=== PATIENT | female | born 1945 | race Caucasian/White ===

== ENCOUNTER 2016-09-11 18:47 | Emergency (ER) | payer OTHER, MEDICAID ==
[~2016-09-11] VITALS: Ht 167.6 cm; Wt 134.1 kg
[2016-09-11 18:50] VITALS: Ht 167.6 cm; Wt 134.1 kg
[2016-09-11] MEDS ORDERED: CARSR60 PO (19:41)
[2016-09-11] MEDS ORDERED: BUSP10TA2 PO (19:42)
[2016-09-11] MEDS ORDERED: [UNRECOGNIZED DRUG - CODE] PO (19:43)
[2016-09-11] MEDS ORDERED: LACT10SO5 PO (19:46)
[2016-09-11] MEDS ORDERED: WARF5TAB72 PO (19:47)
[2016-09-11] MEDS ORDERED: VENL50TA2 PO (19:47)
[2016-09-11] MEDS ORDERED: FURO20TA3 PO (19:48)
[2016-09-11] MEDS ORDERED: ATEN-51 PO (19:48)
[2016-09-11] MEDS ORDERED: VENL100T PO (19:54)
[2016-09-11] MEDS ORDERED: DOCU250C58 PO (19:55)
[2016-09-11] MEDS ORDERED: MAGN400O4 PO (19:56)
[2016-09-11] MEDS ORDERED: LORA-441 PO (19:58)
[2016-09-11 19:59] LABS: ADD SCAN DIFF NO
[2016-09-11] MEDS ORDERED: ACET-2047 PO (19:59)
[2016-09-11 20:01] LABS: BASOPHILS % 0.3 % (0.0-2.0); EOSINOPHILS % 0.1 % (0.0-7.0); HEMATOCRIT 37.9 % (37.0-47.0); HEMOGLOBIN 12.4 g/dl (12.0-16.0); LYMPHOCYTES # 1.8 10^3/ul (0.8-2.9); LYMPHOCYTES % 12.2 % (15.0-51.0); MEAN CORPUSCULAR HGB CONC 32.7 g/dl (32.0-37.0); MEAN CORPUSCULAR VOLUME 94.8 fl (82.0-101.0); MEAN PLATELET VOLUME 10.3 fl (7.4-10.4); MONOCYTE # 1.2 10^3/ul (0.3-0.9); MONOCYTES % 8.1 % (0.0-11.0); NEUTROPHIL # 11.4 10^3/ul (1.6-7.5); NEUTROPHILS % 77.5 % (39.0-77.0); PLATELET COUNT 245 10^3/UL (140-415); RED CELL DISTRIBUTION WIDTH 15.3 % (11.5-14.5); WHITE BLOOD COUNT 14.7 10^3/ul (4.8-10.8)
[2016-09-11] MEDS ORDERED: UDROBAC PO (20:01)
[2016-09-11] MEDS ORDERED: OXYC-282 PO (20:01)
[2016-09-11] MEDS ORDERED: MORP15TA92 PO (20:02)
[2016-09-11 20:19] LABS: POTASSIUM 3.6 mmol/L (3.5-5.1)
[2016-09-11 20:20] LABS: INR 1.93; PARTIAL THROMBOPLASTIN TIME 24.2 Sec (25.0-35.0); PROTIME 22.2 Sec (12.2-14.2); PT RATIO 1.7
[2016-09-11 20:22] LABS: CREATININE 0.84 mg/dl (0.44-1.00)
[2016-09-11 20:23] LABS: CALCIUM 9.1 mg/dl (8.4-10.2)
[2016-09-11 21:08] LABS: URINE BLOOD (Dip) POC Negative (NEGATIVE)
[2016-09-11 21:10] VITALS: BP 127/57; PULSE 90; RESP 23; TEMP 97.5
[2016-09-11 21:24] LABS: ADD UMIC YES; URINE BILIRUBIN (Dip) NEGATIVE (NEGATIVE); URINE BLOOD (Dip) NEGATIVE (NEGATIVE); URINE COLOR LT. YELLOW (YELLOW); URINE GLUCOSE (Dip) NEGATIVE (NEGATIVE); URINE KETONES (Dip) NEGATIVE (NEGATIVE); URINE LEUKOCYTE ESTERASE (Dip) TRACE (NEGATIVE); URINE NITRITE (Dip) POSITIVE (NEGATIVE); URINE TOTAL PROTEIN (Dip) NEGATIVE (NEGATIVE); URINE UROBILINOGEN (Dip) 0.2 E.U./dL (0.1-1.0)
[2016-09-11] MEDS ORDERED: CEFTRIAXONE 1 GM/50 ML (PMX) 50 ML IVPB ONE (21:30)
[2016-09-11 21:38] LABS: BACTERIA,URINE MANY
[2016-09-11 21:39] LABS: URINE RBCS 0-2 /HPF (0)
--- NOTE | 2016-09-11 22:11 | ERA ---
ER Documentation Chief Complaint Date/Time DATE: 09/11/16 TIME: 22:07 Chief Complaint From Ismael Duarte,generalized pain,BLE swelling,needs SNF placement HPI This is a 71-year-old female who presents the emergency room for multiple complaints. It appears the main issue is that the patient is not being cared for appropriately at her assisted living facility. She is concerned that she cannot transfer from bed to chair and the staff is unable to help her with her activities of daily living. The patient describes diffuse body pain with a history of fibromyalgia. She notes bilateral lower extremity swelling that is consistent with baseline with a history of DVT appropriately on Coumadin. She denies any chest pain or pleuritic pain. ROS All systems reviewed and are negative except as per history of present illness. Medications Home Meds Reported Medications Morphine Sulfate* (Ms Contin*) 15 Mg Tablet.sa, 15 MG PO Q6H, TAB 09/11/16 Oxycodone HCl/Acetaminophen (Percocet 2.5-325 mg Tablet) 1 Each Tablet, 1 EACH PO Q6H, TAB 09/11/16 Guaifenesin-Codeine Phosphate* (Robitussin* AC) 5 Ml Syrup, 5 ML PO Q6H Y for COUGH, ML 09/11/16 Acetaminophen* (Acetaminophen*) 650 Mg Tablet, 650 MG PO Q6H Y for MAILD PAIN, # 30 TAB 09/11/16 Lorazepam* (Ativan*) 0.5 Mg Tablet, 0.5 MG PO HS Y for ANXIETY, #30 TAB 09/11/16 Magnesium Hydroxide* (Milk Of Magnesia*) 400 Mg/5 Ml Oral.susp, 30 ML PO QHS Y for PRN, ML 09/11/16 Docusate Sodium* (Colace*) 250 Mg Capsule, 250 MG PO DAILY, #30 CAP 09/11/16 Atenolol* (Atenolol*) 25 Mg Tablet, 50 MG PO BID, #60 TAB 09/11/16 Furosemide* (Furosemide*) 20 Mg Tablet, 20 MG PO DAILY, #60 TAB 09/11/16 Warfarin Sodium* (Coumadin*) 5 Mg Tablet, 5 MG PO DIRRECTED, TAB 09/11/16 Venlafaxine Hcl* (Venlafaxine Hcl*) 50 Mg Tablet, 100 MG PO TID, TAB 5/19/17 Lactulose* (Lactulose*) 10 Gm/15 Ml Solution, 30 ML PO Q8, ML 09/11/16 Phytonadione* (Mephyton*) 5 Mg Tablet, 5 MG PO DAILY Y for DIRRECTED, #30 TAB 09/11/16 Buspirone Hcl* (Buspirone Hcl*) 10 Mg Tab, 15 MG PO BID, TAB 09/11/16 Diltiazem Hcl* (Cardizem SR*) 60 Mg Capsr, 60 MG PO QID, #60 CAP 09/11/16 Discontinued Reported Medications Venlafaxine Hcl* (Venlafaxine Hcl*) 100 Mg Tablet, 100 MG PO TID, TAB 09/11/16 Allergies Allergies: Coded Allergies: No Known Allergy (Unverified , 09/11/16) PMhx/Soc Hx Miscellaneous Medical Probl: Yes (osteoarthritis) Hx Alcohol Use: No Hx Substance Use: No Hx Tobacco Use: No Smoking Status: Never smoker FmHx Family History: No diabetes Physical Exam Vitals Vital Signs Date Time Temp Pulse Resp B/P Pulse Ox O2 Delivery O2 Flow Rate FiO2 09/11/16 21:10 97.5 90 23 127/57 97 Nasal Cannula 2.0 09/11/16 21:10 99.0 100 20 128/79 99 Nasal Cannula 2.0 09/11/16 18:50 98.5 82 18 133/78 93 Physical Exam General: Morbidly obese but no acute distress Head: Normocephalic, atraumatic. Eyes: Pupils equally reactive, EOM intact ENT: Moist mucous membranes Neck: Supple, no lymphadenopathy Respiratory: Lungs clear bilaterally, no distress Cardiovascular: RRR, no murmurs, rubs, or gallops Abdominal: Soft, non-tender, non-distended, no peritoneal signs : Deferred MSK: Significant bilateral lower extremity swelling with weeping, ecchymoses, 1 + dorsalis pedis pulses bilaterally Neurologic: Alert and oriented, moving all extremities, normal speech, no focal weakness, no cerebellar signs Skin: No rash Psych: Normal mood Result Diagram: 09/11/16194709/11/161947 Results 24 hrs Laboratory Tests Test 09/11/16 19:48 09/11/16 21:05 09/11/16 21:09 White Blood Count 14.710^3/ul Red Blood Count 4.0010^6/ul Hemoglobin 12.4g/dl Hematocrit 37.9% Mean Corpuscular Volume 94.8fl Mean Corpuscular Hemoglobin 31.0pg Mean Corpuscular Hemoglobin Concent 32.7g/dl Red Cell Distribution Width 15.3% Platelet Count 46041^3/UL Mean Platelet Volume 10.3fl Neutrophils % 77.5% Lymphocytes % 12.2% Monocytes % 8.1% Eosinophils % 0.1% Basophils % 0.3% Nucleated Red Blood Cells % 0.0/100WBC Neutrophils # 11.410^3/ul Lymphocytes # 1.810^3/ul Monocytes # 1.210^3/ul Eosinophils # 0.010^3/ul Basophils # 0.010^3/ul Nucleated Red Blood Cells # 0.010^3/ul Prothrombin Time 22.2Sec Prothrombin Time Ratio 1.7 INR International Normalized Ratio 1.93 Activated Partial Thromboplast Time 24.2Sec Sodium Level 137mmol/L Potassium Level 3.6mmol/L Chloride Level 97mmol/L Carbon Dioxide Level 30mmol/L Anion Gap 14 Blood Urea Nitrogen 34mg/dl Creatinine 0.84mg/dl Glucose Level 127mg/dl Calcium Level 9.1mg/dl Urine Color LT. YELLOW Urine Clarity CLEAR Urine pH 6.0 Urine Specific [place] 1.015 Urine Ketones NEGATIVE Urine Nitrite POSITIVE Urine Bilirubin NEGATIVE Urine Urobilinogen 0.2 E.U./dL Urine Leukocyte Esterase TRACE Urine Microscopic RBC 0-2/HPF Urine Microscopic WBC 0-2/HPF Urine Epithelial Cells FEW Urine Bacteria MANY Urine Hemoglobin NEGATIVE Urine Glucose NEGATIVE% Urine Total Protein NEGATIVE Bedside Urine pH (LAB) 6.0 Bedside Urine Protein (LAB) Negative Bedside Urine Glucose (UA) Negative Bedside Urine Ketones (LAB) Negative Bedside Urine Blood Negative Bedside Urine Nitrite (LAB) Positive Bedside Urine Leukocyte Esterase (L Trace Current Medications Medications (Trade) Dose Ordered Sig/Neil Route PRN Reason Start Time Stop Time Status Last Admin Dose Admin Ceftriaxone Sodium (Rocephin) 50 ml @ 100 mls/hr ONCE ONCE IVPB 09/11/16 21:30 09/11/16 21:59 DC 09/11/16 21:35 Procedures/MDM LAB INTERPRETATION: Leukocytosis with evidence of urinary tract infection MEDICAL DECISION MAKING: It appears that the patient's main reason for visiting the emergency room is a placement issue. It appears that the patient has recently had an assisted living facility recently downgraded from a correction facility. It appears the patient requires higher level of care given her activities of daily living are not being met. The patient has a history of morbid obesity, chronic pain that is grossly unchanged. She is currently taking Coumadin and is therapeutic for bilateral lower extremity DVTs. The patient does have significant lower extremity swelling and weeping that appears to be chronic. ER COURSE: She has evidence of urinary tract infection was given ceftriaxone. Her pain is controlled. The patient requires hospitalization for placement. The patient is a [facility] member and I was able to speak to Dr. Ferrara with [facility]. They will attempt to transfer the patient to the [facility] so they can facilitate placement. This will be a reasonable plan as the patient does not require hospitalization for any other acute or emergent processes. Outpatient UTI treatment would be appropriate. I kept the patient and/or family informed of laboratory and diagnostic imaging results throughout the emergency room course. DISPOSITION PLAN: Transfer to [facility] CONSULTATION: Accepting care team and consultations: I discussed the current laboratory data, diagnostic imaging and emergency care provided. Admitting team: Dr. Ferrara [facility] Admitting team indication: Insurance directed Departure Diagnosis: Primary Impression: Urinary tract infection Qualified Code: N30.00 - Acute cystitis without hematuria Additional Impressions: Morbid obesity Qualified Code: E66.01 - Morbid obesity, unspecified obesity type History of DVT (deep vein thrombosis) Condition: EDILSON Oseguera MD September 11, 2016 22:11
== END 2016-09-11 23:19 | disposition short-term general hospital (02) ==
LOC: E/R 18:47
DX: N30.00 Acute cystitis without hematuria (principal); E66.01 Morbid (severe) obesity due to excess calories; Z68.42 Body mass index [BMI] 45.0-49.9, adult; Z79.01 Long term (current) use of anticoagulants; Z86.718 Personal history of other venous thrombosis and embolism
CPT/HCPCS: 36415; 51702; 80048; 81001; 85025; 85610; 85730; 96374; 99285; J0696; 81003